=== PATIENT | male | born 1985 | race Caucasian/White ===

== ENCOUNTER 2019-07-16 18:56 | Emergency (ER) | payer OTHER ==
--- NOTE | 2019-07-16 19:29 | EDM.PDOC ---
ED HPI GENERAL MEDICAL PROBLEM - General Chief Complaint: Abdominal Pain Stated Complaint: STOMACH PAIN Time Seen by Provider: 07/16/19 19:29 - History of Present Illness INITIAL COMMENTS - FREE TEXT/NARRATIVE: 34-year-old male presents to the emergency room with persistent epigastric discomfort he has a history of H. pylori. The patient is usually seen by the [facility] in [facility]. He is appear working. He will be home in a week. He was diagnosed with H. pylori he had initial treatment done there it did not work he was seen in [place] they retreated him it did not work. Apparently after his initial treatment he had a stool study done that showed the infection was still present. He is currently taking omeprazole once a day. Patient is also wearing a heart monitor for a month as he has some intermittent dizziness and lightheadedness. In his initial work-up he did have a colonoscopy and EGD. Left Upper Abdomen Pain Score (Numeric/FACES): 8 - Related Data Allergies Allergy/AdvReac Type Severity Reaction Status Date / Time No Known Allergies Allergy Verified 07/16/19 19:17 Home Meds: Home Meds Dicyclomine HCl [Bentyl] 20 mg PO QID PRN 07/16/19 [History] Folic Acid 1 mg PO DAILY 07/16/19 [History] Pantoprazole [ProTONIX] 40 mg PO DAILY 07/16/19 [History] Sucralfate [Carafate] 1 gm PO ASDIRECTED #60 tablet 07/16/19 [Rx] Vit B12/Intrins Fact/Fa Cmb #2 [Intrinsi [id number]] 500 mcg PO DAILY 07/16/19 [ History] Past Medical History Cardiovascular History: Reports: Other (See Below) Other Cardiovascular History: dizziness....wearing an event monitor currently - Past Surgical History GI Surgical History: Reports: Appendectomy, Hernia Repair/Other Social & Family History - Caffeine Use Caffeine Use: Reports: None - Recreational Drug Use Recreational Drug Use: Yes Drug Use in Last 12 Months: No Other Recreational Drug Type: used steroids 1.5 years ago ED ROS GENERAL - Review of Systems Review Of Systems: See Below Constitutional: Reports: No Symptoms HEENT: Reports: No Symptoms Respiratory: Reports: No Symptoms, Other (Stomachs really acting up deep breathing seems to irritate that more) Cardiovascular: Reports: Lightheadedness, Palpitations Endocrine: Reports: No Symptoms GI/Abdominal: Reports: Abdominal Pain. Denies: Constipation, Diarrhea, Nausea, Vomiting : Reports: No Symptoms Musculoskeletal: Reports: No Symptoms Skin: Reports: No Symptoms Neurological: Reports: No Symptoms ED EXAM, GI/ABD - Physical Exam Exam: See Below Exam Limited By: No Limitations General Appearance: Alert, No Apparent Distress Head: Atraumatic, Normocephalic Neck: Normal Inspection, Supple, Non-Tender, Full Range of Motion. No: Lymphadenopathy (L), Lymphadenopathy (R) Respiratory/Chest: No Respiratory Distress, Lungs Clear, Normal Breath Sounds, Chest Non-Tender Cardiovascular: Regular Rate, Rhythm, No Edema, No Murmur Back Exam: Normal Inspection. No: CVA Tenderness (L), CVA Tenderness (R) Course - Vital Signs Last Recorded V/S: Last Vital Signs Temp 37.1 C 07/16/19 19:19 Pulse 47 L 07/16/19 19:19 Resp 16 07/16/19 19:19 BP 122/77 07/16/19 19:19 Pulse Ox 99 07/16/19 19:19 - Orders/Labs/Meds Meds: Medications Discontinued Medications Generic Name Dose Route Start Last Admin Trade Name Alessandroq PRN Reason Stop Dose Admin Sucralfate 1 gm 07/16/19 19:56 07/16/19 20:10 Carafate PO 07/16/19 19:57 1 gm ONETIME ONE Administration - Re-Assessments/Exams Free Text/Narrative Re-Assessment/Exam: 07/16/19 20:35 Taking omeprazole 20 mg once daily we will increase this to twice daily. We will start him on Carafate. He has had now 2 treatment failures he needs to follow-up with a have most of his records before getting a third treatment is a not certain exactly what he is received. Patient understands this and I think he will do better on this holdover regimen. Departure - Departure Time of Disposition: 20:36 Disposition: Home, Self-Care 01 Clinical Impression: Helicobacter pylori gastritis - Discharge Information Prescriptions: Sucralfate [Carafate] 1 gm PO ASDIRECTED #60 tablet Referrals: PCP,Not In Area [Primary Care Provider] - Forms: ED Department Discharge Additional Instructions: Return to the emergency room with any questions problems or worsening symptoms. Follow-up with your regular provider as soon as you get back to [place]. Take the Carafate before your morning midday evening meals and at bedtime take your other medications at least an hour before the Carafate or 2 hours after. Increase your omeprazole to twice daily 1 hour before breakfast and 1 hour before your evening meal. Sepsis Event Note - Evaluation Sepsis Screening Result: No Definite Risk - Focused Exam Vital Signs: Vital Signs Temp Pulse Resp BP Pulse Ox 07/16/19 19:19 37.1 C 47 L 16 122/77 99 Date Exam was Performed: 07/16/19 Time Exam was Performed: 20:33
[2019-07-16] MEDS ORDERED: Sucralfate Suspension 1 GM/10 ML Cup PO ONE (19:56)
== END 2019-07-16 20:47 | disposition home or self-care (01) ==
LOC: JD.ED 18:56
DX: K29.60 Other gastritis without bleeding (principal); B96.81 Helicobacter pylori [H. pylori] as the cause of diseases classified elsewhere
CPT/HCPCS: 99283; A9270